=== PATIENT | male | born 1960 | race African-American/Black ===

== ENCOUNTER 2020-07-18 17:20 | Inpatient (IN) | payer BC ==
[~2020-07-18] VITALS: Ht 167.6 cm; Wt 81.6 kg
[2020-07-18 17:20] VITALS: BP 141/73
[~2020-07-18 17:20] MED LIST: IBUPROFEN 800800 MG PO; NORCO 5-325 TA1 EACH PO
--- NOTE | 2020-07-18 19:25 | H ---
[facility] [place] [address] HISTORY AND PHYSICAL Name: MELLISSA DIAZ Room #: 160-6 ADM IN M.R.#: [id number] Admission: 07/18/20 Attend Phys: Arturo Garcia MD, Discharge: Date of : 62 Report #: [id number] THIS REPORT FOR: cc: GURINDER - Pari family physician/PCP GURINDER - Pari family physician/PCP Arturo Garcia MD [facility] ~ CC: [facility] physician/PCP Arturo Pino DO DATE OF SERVICE: 07/18/2020 HISTORY OF PRESENT ILLNESS: The patient is a 59-year-old male, who is generally followed by Dr. Pino. He has little medical history, but he presents to the Emergency Room. His drove him to the Emergency Room after he had drove from [place]. 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 He was driving back from his route to [place], in the last 3 hours having substernal chest discomfort with some mild diaphoresis and shortness of breath. Subsequently, brought to the ER by his , approximately 3 hours into the event, with ST elevation in the inferolateral leads, still having a moderate amount of chest discomfort. Relatively hemodynamically stable. No prior cardiac history. He takes no medications. He denies any prior surgeries. He was given aspirin, heparin, and Lipitor 80 mg in the Emergency Room and then will be brought emergently to the catheterization lab, still having some discomfort. PAST MEDICAL HISTORY: Essentially negative. No blood pressure, not aware that he has elevated cholesterol. No prior surgeries. 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 No alcohol or tobacco. FAMILY HISTORY: Brother at around his age 60-61 had a bypass and a pacemaker. REVIEW OF SYSTEMS: Essentially negative except for some occasional nocturia and as stated above. Some decrease in exercise tolerance. PHYSICAL EXAMINATION: VITAL SIGNS: Pulse is 60-70s, blood pressure 118/64. HEENT: Eyes reveal xanthelasmas. Pharynx is clear. NECK: Shows preserved upstrokes without JVD or bruits. LUNGS: Clear. CARDIOVASCULAR: Regular rate and rhythm, S1, S2. ABDOMEN: Soft. No HSM or abdominal bruit. EXTREMITIES: Reveal no edema. His pulses were intact. NEUROLOGIC: Nonfocal. [facility] [address] [place] [address] HISTORY AND PHYSICAL Name: MELLISSA DIAZ Room #: 160-6 ADM IN M.R.#: [id number] Admission: 07/18/20 Attend Phys: Arturo Garcia MD, Discharge: Date of : 62 Report #: [id number] SKIN: Warm and dry without xanthoma or ulcer. MUSCULOSKELETAL: No gross joint deformity. ASSESSMENT: 1. Inferolateral ST-elevation myocardial infarction. 2. Strong family history of premature coronary disease. RECOMMENDATIONS AND PLAN: Heparin, aspirin, and statin has been initiated. We will move emergently to the catheterization lab for intervention. Risks, benefits, alternatives were discussed with the patient, he will elect to proceed. <ELECTRONICALLY SIGNED> By: Arturo Garcia MD, FACC 07/18/201924 00 17 Arturo Garcia MD, FACC /nt
[2020-07-18 19:38] LABS: HEMATOCRIT 39.9 % (42.0-52.0); HEMOGLOBIN 13.2 gm/dL (14.0-18.0); MCH 27.3 pg (26.0-34.0); MCHC 33.1 g/dL (28.0-37.0); MCV 82.6 fL (80.0-100.0); RBC 4.83 mil/uL (4.50-6.00); WBC 8.4 thou/uL (4.0-11.0)
[2020-07-18 19:49] LABS: ANION GAP 11 mmol/L (7-16); BUN 8 mg/dL (7-18); CALCIUM 9.2 mg/dL (8.5-10.1); CHLORIDE 104 mmol/L (98-107); CO2 24 mmol/L (21-32); GLUCOSE 133 mg/dL (74-106); POTASSIUM 3.7 mmol/L (3.5-5.1); SODIUM 139 mmol/L (136-145)
[2020-07-18 20:04] LABS: HEMATOCRIT 36.3 % (42.0-52.0); HEMOGLOBIN 12.3 gm/dL (14.0-18.0); MCH 27.4 pg (26.0-34.0); MCHC 33.8 g/dL (28.0-37.0); MCV 80.9 fL (80.0-100.0); RBC 4.48 mil/uL (4.50-6.00); RDW 14.2 % (10.5-14.5); WBC 6.8 thou/uL (4.0-11.0)
[2020-07-18 20:20] LABS: ANION GAP 9 mmol/L (7-16); BUN 6 mg/dL (7-18); CALCIUM 8.6 mg/dL (8.5-10.1); CHLORIDE 106 mmol/L (98-107); CO2 23 mmol/L (21-32); CREATININE 0.8 mg/dL (0.7-1.3); GLUCOSE 115 mg/dL (74-106); POTASSIUM 3.6 mmol/L (3.5-5.1); SODIUM 138 mmol/L (136-145)
[2020-07-18 20:22] LABS: TROPONIN-I 148.22 ng/mL (<0.06)
[2020-07-18 21:00] VITALS: BP 142/76
[2020-07-19] VITALS (7 sets, daily range): BP systolic 103–131; BP diastolic 54–69
[2020-07-19 00:10] LABS: CHOLESTEROL 163 mg/dL (<200); HDL CHOLESTEROL 45 mg/dL (>40); LDL CHOLESTEROL 106 mg/dL (<100); TC:HDL 3.6 Ratio (Not establshd); TRIGLYCERIDE 60 mg/dL (<150); VLDL 12 mg/dL (<40)
[2020-07-19 00:16] LABS: CHOLESTEROL 142 mg/dL (<200); HDL CHOLESTEROL 40 mg/dL (>40); LDL CHOLESTEROL 98 mg/dL (<100); TC:HDL 3.6 Ratio (Not establshd); TRIGLYCERIDE 22 mg/dL (<150); VLDL 4 mg/dL (<40)
[2020-07-19 00:30] LABS: SERUM ASSESSMENT Clear
[2020-07-19 00:30] LABS: SERUM ASSESSMENT Clear
--- NOTE | 2020-07-19 05:16 | NUR ---
PT IS ALERT AND ORIENTED X4. LUNGS ARE CLEAR. DENIES CHEST PAIN. DID HAVE A HEADACHE BUT TYLENOL HELPED AND HEADACHE IS GONE. ABDOMEN IS ROUND BOWEL SOUNDS ACTIVE X4. DISCUSSED PLAN OF CARE. DICUSEDD HEALTHY LIFE STYLE OR STRESS CHANGES WITH LIVING. GROIN SITE IS ON THE RIGHT NO EDEMA OR BLEEDING NOTED OR BRUISING. MINIMAL PAIN PT SLEPT DURING THE NIGHT IN BETWEEN NURSING CARE.
[2020-07-19 07:57] LABS: HEMATOCRIT 37.2 % (42.0-52.0); HEMOGLOBIN 12.3 gm/dL (14.0-18.0); MCH 27.2 pg (26.0-34.0); MCHC 33.2 g/dL (28.0-37.0); MCV 82.2 fL (80.0-100.0); RBC 4.53 mil/uL (4.50-6.00); RDW 14.3 % (10.5-14.5)
[2020-07-19 08:03] LABS: CALCIUM 8.7 mg/dL (8.5-10.1); CREATININE 0.8 mg/dL (0.7-1.3); POTASSIUM 3.6 mmol/L (3.5-5.1)
--- NOTE | 2020-07-19 13:43 | 2DMMODE ---
[facility] [address] [place] [address] 2 D/M-MODE ECHOCARDIOGRAM Name: MELLISSA DIAZ Room #: 207-P ADM IN M.R.#: [id number] Admission: 07/18/20 Attend Phys: Arturo Garcia MD, Discharge: Date of : 62 Report #: [id number] THIS REPORT FOR: cc: GURINDER - Pari family physician/PCP FAM - No family physician/PCP Arturo Garcia MD [facility] ~ APPROVED REPORT Study performed: 07/19/2020 09:47:08 EXAM: Comprehensive 2D, Doppler, and color-flow Echocardiogram Patient Location: Bedside Room #: 207 Status: on-call BSA: 1.87 HR: 63 bpm BP: 114/62 mmHg Rhythm: NSR Other Information Study Quality: Good Indications STEMI stats post PCI. 2D Dimensions RVDd: 39.45 mm IVSd: 12.00 (7-11mm) LVOT Diam: 21.00 (18-24mm) LVDd: 43.00 mm PWd: 12.02 (7-11mm) Ascending Ao: 32.00 (22-36mm) LVDs: 32.00 (25-40mm) Aortic Root: 30.86 mm Volumes Left Atrial Volume (Systole) Single Plane 4CH: 45.33 mL Single Plane 2CH: 68.87 mL LA ESV Index: 31.00 mL/m2 Aortic Valve AoV Peak Hamilton.: 1.69 m/s AO Peak Gr.: 11.48 mmHg LVOT Max P.39 mmHg LVOT Max V: 1.26 m/s TUSHAR Vmax: 2.66 cm2 [facility] [address] [address] 2 D/M-MODE ECHOCARDIOGRAM Name: MELLISSA DIAZ Room #: 207-P [facility].#: [id number] Admission: 07/18/20 Attend Phys: Arturo Garcia, Discharge: Date of : 62 Report #: [id number] Mitral Valve E/A Ratio: 1.7 MV Decel. Time: 181.03 ms MV E Max Hamilton.: 0.96 m/s MV A Hamilton.: 0.56 m/s MV PHT: 52.50 ms IVRT: 72.66 ms Pulmonary Valve PV Peak Hamilton.: 1.00 m/s PV Peak Gr.: 4.03 mmHg Pulmonary Vein P Vein S: 0.79 m/s P Vein D: 0.49 m/s P Vein S/D Ratio: 1.61 Tricuspid Valve TR Peak Hamilton.: 2.82 m/s RAP Estimate: 5.00 mmHg TR Peak Gr.: 32.00 mmHg PA Pressure: 37.00 mmHg Left Ventricle The left ventricle is normal size. Mild inf lateral hypokinesis Mild concentric left ventricular hypertrophy. Left ventricular systolic function is borderline. LVEF is 45-50%. Right Ventricle The right ventricle is normal size. The right ventricular systolic function is normal. Atria The left atrium size is normal. The right atrium size is normal. Aortic Valve The aortic valve is normal in structure. No aortic regurgitation is present. There is no aortic valvular stenosis. Mitral Valve The mitral valve is normal in structure. Trace to mild mitral regurgitation. No evidence of mitral valve stenosis. Tricuspid Valve The tricuspid valve is normal in structure. Trace tricuspid regurgitation. Estimated PAP is 35-40mmHg. [facility] [address] [address] 2 D/M-MODE ECHOCARDIOGRAM Name: MELLISSA DIAZ Room #: 207-P ADM IN M.R.#: [id number] Admission: 07/18/20 Attend Phys: Arturo Garcia, Discharge: Date of : 62 Report #: [id number] Pulmonic Valve The pulmonary valve is normal in structure. Trace pulmonic regurgitation. Great Vessels The aortic root is normal in size. The ascending aorta is normal in size. IVC is normal in size and collapses >50% with inspiration. Pericardium There is no pericardial effusion. <Conclusion> The left ventricle is normal size. Mild inf lateral hypokinesis LVEF is 45-50%. The right ventricle is normal size. The left atrium size is normal. The aortic valve is normal in structure. Trace to mild mitral regurgitation. Trace tricuspid regurgitation. Estimated PAP is 35-40mmHg. The aortic root is normal in size. There is no pericardial effusion. <ELECTRONICALLY SIGNED> By: Arturo Garcia MD, FACC 07/19/20 1343 134 42 Arturo Garcia MD, FACC /INF
--- NOTE | 2020-07-19 14:04 | CATHLAB ---
[facility] [place] [place] [address] INVASIVE PROCEDURE REPORT Name: MELLISSA DIAZ Room #: 207-P ADM IN M.R.#: [id number] Admission: 07/18/20 Attend Phys: Arturo Garcia MD, Discharge: Date of : 62 Report #: [id number] THIS REPORT FOR: cc: FAM - No family physician/PCP FAM - No family physician/PCP Arturo Garcia MD [facility] ~ APPROVED REPORT Study performed: 07/18/2020 18:00:24 Patient Details Patient Status: In-Patient Room #: The patient is a 59 year-old male Event Personnel Arturo Garcia Telecommunication Operator, Tati Gibson RN RN, Yvonne Alex, Gricel Adamson Scrlinda Procedures Performed Art Access - R femoral artery* 22446 Initial Mod Sed Same Phys/QHP Gr5y 973767 19954 Mod Sed Same Phys/QHP Ea 420616 Left Heart Cath w/or w/o Coronaries [id number] [facility] Aortogram Abdominal Peripheral Angio 627623 Hemostasis w/ Mynx CHARI Revasc AMI Total/Sub Single CIRC C9606 AMIREVSING Indication STEMI Procedure Narrative The patient was brought emergently to the Cardiac Catheterization Laboratory and was prepped and draped in a sterile manner. The Right Groin^ was infiltrated with 1% Lidocaine subcutaneous anesthesia. A PINNACLE 6FR Sheath #[id number] sheath was inserted into the RFA^. Coronary angiography was performed using coronary diagnostic catheters. The right coronary system was accessed and visualized with a JR 4 catheter. The left coronary system was accessed and visualized with a JL 4 catheter. The left ventricle was accessed and visualized with a Pigtail catheter. Left ventriculogram was performed in VELASCO projection. An aortogram of the abdominal aorta was performed. Closure device was deployed with a 6 Fr Mynx. The patient tolerated the procedure well and there were no complications associated with the procedure. There was no hematoma. Intraoperative Conscious Sedation [facility] [address] [place] [address] INVASIVE PROCEDURE REPORT Name: MELLISSA DIAZ Room #: 207-P [facility] IN M.R.#: [id number] Admission: 07/18/20 Attend Phys: Arturo Garcia, Discharge: Date of : 62 Report #: [id number] Sedation start time: 17:17 Case end Time: 19:20 Fentanyl 100 mcg Versed 2 mg Fluoro Time: 7.12 minutes Dose: DAP 7450.00 cGycm2 953 mGy Contrast Type and Amount: Visipaque 207 ml Hemodynamics The aortic pressure is 139/77 mmHg with a mean of 102 mmHg. PCI Technique Lesion Percutaneous coronary intervention was performed on the first obtuse marginal branch segment. A LAUNCHER 6FR EBU 3.5 #[id number] Guide Catheter was used to engage the ostium. A Luge Wire .014 x 182CM #[id number] Interventional Guidewire was used to cross the lesion. BALLOON DILATION A Balloon catheter Sprinter OTW 2.5 x 12 #[id number] was inserted and inflated up to 8.00atm for 16seconds. Additional Inflation: 8.00atm for 13seconds. Additional Inflation: 8.00atm for 10seconds. STENT DEPLOYMENT A drug-eluting stent RESOLUTE KAY OTW 2.5 X 12 #[id number] was inserted and inflated up to 12.00atm for 22seconds. Additional Inflation: 14.00atm for 15seconds. Conclusion #1. Successful PTCA stent of an acute infarct vessel first OM and a dominant circumflex system 100% to 0% with REMA grade III flow placement of a 2.5 x 12 resolute Saxon postdilated 2.7 mm bifurcation distal to the stent being third OM has an eccentric ostial lesion of 50% #2 the proximal circumflex mildly diseased circumflex in the AV groove is mildly diseased. This is the dominant vessel. #3 left main large mildly disease giving rise to LAD and circumflex #4 LAD with 30 to 40% proximal proximal mid 50% long lesion diffuse distal disease wraps around the apex. #5 small nondominant right coronary with mild disease #6 normal left jugular size with inferior lateral hypokinesis EF 45 to 50% range (suspect stunning) #7 abdominal aortogram widely patent normal caliber no aneurysm. Single bilateral renal arteries widely patent [facility] [address] [place] [address] INVASIVE PROCEDURE REPORT Name: MELLISSA DIAZ Room #: 207-P [facility] IN M.R.#: [id number] Admission: 07/18/20 Attend Phys: Arturo Garcia, Discharge: Date of : 62 Report #: [id number] Recommendations and plan: Continue aggressive risk factor modification. Dual antiplatelet therapy initiated Integrilin drip initiated to CCU follow post coronary stent protocol. <ELECTRONICALLY SIGNED> By: Arturo Garcia MD, FACC 07/19/20 1404 1404 1404 Arturo Garcia MD, FACC /INF
--- NOTE | 2020-07-19 18:01 | NUR ---
ASSESSMENT CHARTED. PT ALERT AND ORIENTED. VSS. RECEIVED PRN PAIN MED FOR JANSEN WITH PARTIAL RELEIF. SR/SB. NO CARDIAC DISTRESS NOTED. AMBULATED X1 THIS SHIFT. PROGRESSING WELL TOWARDS DISCHARGE GOAL.
--- NOTE | 2020-07-19 23:28 | NUR ---
VITALS STABLE. LUNGS ARE CLEAR HE IS ON ROOM AIR. UP TO BATHROOM AND UP AD CICI DENIES ANY CHEST PAIN. SINUS RHYTHM, ON THE MONITOR. PLEASANT. ABDOMEN IS FLAT BOWEL SOUNDS ACTIVE X4. NO EDEMA NOTED. WILL CONTINUE TO ASSESS AND MONITOR PER NURSING. NO ISSUES OR CONERNS NOTED AT THIS TIME.
[2020-07-20 04:21] VITALS: BP 104/55
[2020-07-20 04:29] LABS: CALCIUM 8.4 mg/dL (8.5-10.1); POTASSIUM 3.6 mmol/L (3.5-5.1)
--- NOTE | 2020-07-20 04:31 | NUR ---
PT IS ALERT AND ORIENTED X4. LUNGS ARE CLEAR. DENIES ANY PAIN . RESTING AND SLEEPING. 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 COMPLAINS OF SLIGHT HEADACHE TYLNEOL GIVNE AN PT SLEEPING NOW. VITALS STABLE. NO EDEMA NOTED. WILL CONTINUE TO ASSESS AND MONITOR , POSSIBLE DISCHARGE TODAY.
[2020-07-20 07:37] VITALS: BP 108/60
[2020-07-20] MEDS ORDERED: TOPROL XL25 MG PO (07:45)
[2020-07-20] MEDS ORDERED: ASPIRIN325 PO (07:45)
[2020-07-20] MEDS ORDERED: LIPITOR40 MG PO (07:45)
[2020-07-20] MEDS ORDERED: EFFIENT10 MG PO (07:45)
[2020-07-20] MEDS ORDERED: COZAAR 25 MG TA25 M1 PO (07:45)
[2020-07-20 09:25] VITALS: BP 108/60
--- NOTE | 2020-07-20 09:54 | NUR ---
ASSESSMENT CHARTED. PT ALERT AND ORIENTED. VSS. DEIED HAVING PAIN OR DISCOMFORT. SR ON TELE. SEEN BY DR. LOPEZ. ORDERS GIVEN TO DISCHARGE PT TO HOME. DISCHARGE INSTRUCTIONS GIVEN TO PT. PT VERBERLISED UNDERSTANDING.
--- NOTE | 2020-07-20 16:32 | EKG ---
[facility] [place] [address] ELECTROCARDIOGRAM REPORT Name: MELLISSA DIAZ Room #: 207- DIS IN M.R.#: [id number] Admission: 07/18/20 Attend Phys: Arturo Garcia MD, Discharge: 07/20/20 Date of : 62 Report #: [id number] THIS REPORT FOR: cc: GURINEDR - Pari family physician/PCP FAM - No family physician/PCP Seven Solomon MD [facility] ~ THIS REPORT FOR: //name// [facility] ED Test Date: 2020-07-18 Test Time: 17:18:51 Pat Name: MELLISSA DIAZ Department: Room: 207 Gender: M Pan Helper: JSELINA : 1960 Requested By: Mario Vallecillo Order Number: [id number] MD: Seven Solomon Measurements Intervals [place] Rate: 57 P: 48 MD: 158 QRS: 23 QRSD: 97 T: -50 QT: 440 QTc: 429 Interpretive Statements Sinus rhythm Probable inferior infarct, possibly acute Abnormal lateral Q waves No previous ECG available for comparison Electronically Signed On 07-20-2020 16:32:45 CDT by Seven Solomon [email or web address] <ELECTRONICALLY SIGNED> By: Seven Solomon MD, [facility] 07/20/20 1632 1718 1718 Seven Solomon MD, [facility] /EPI
--- NOTE | 2020-07-20 16:40 | EKG ---
[facility] [place] [address] ELECTROCARDIOGRAM REPORT Name: MELLISSA DIAZ Room #: 207-P DIS IN M.R.#: [id number] Admission: 07/18/20 Attend Phys: Arturo Garcia MD, Discharge: 07/20/20 Date of : 62 Report #: [id number] THIS REPORT FOR: cc: GURINDER - Pari family physician/PCP GURINDER - No family physician/PCP Seven Solomon MD [facility] ~ THIS REPORT FOR: //name// [facility] Test Date: 2020-07-19 Test Time: 07:26:15 Pat Name: MELLISSA DIAZ Department: Room: 207 Gender: M Is Manager: UNK : 1960 Requested By: Arturo Garcia Order Number: [id number] MD: Seven Solomon Measurements Intervals [place] Rate: 60 P: 27 RI: 152 QRS: -22 QRSD: 98 T: -89 QT: 460 QTc: 460 Interpretive Statements Sinus rhythm Inferior infarct, recent T wave abnormality, consider lateral ischemia Compared to ECG 07/18/2020 17:18:[address] segment elevation is less prominent Electronically Signed On 07-20-2020 16:39:56 CDT by Seven Solomon [email or web address] <ELECTRONICALLY SIGNED> By: Seven Solomon MD, [facility] 07/20/20 1639 5 5 Seven Solomon MD, FAC /EPI
== END 2020-07-20 10:41 | disposition home or self-care (01) | DRG 247 ==
LOC: ER 17:20 → TBACV 19:13 → 2N 20:27
PROVIDERS: ADMIT Internal Medicine Cardiovascular Disease; ATTEND Internal Medicine Cardiovascular Disease
DX: I21.19 ST elevation (STEMI) myocardial infarction involving other coronary artery of inferior wall (principal); M19.90 Unspecified osteoarthritis, unspecified site; E78.5 Hyperlipidemia, unspecified; I25.5 Ischemic cardiomyopathy; Z82.49 Family history of ischemic heart disease and other diseases of the circulatory system; Z79.899 Other long term (current) drug therapy
CPT/HCPCS: 10081

== ENCOUNTER 2020-08-07 08:22 | Emergency (ER) | payer BC ==
[~2020-08-07] VITALS: Ht 170.2 cm; Wt 78.0 kg
[~2020-08-07 08:22] MED LIST changes: +ASPIRIN325 PO; +COZAAR 25 MG TA25 M1 PO; +EFFIENT10 MG PO; +LIPITOR40 MG PO; +TOPROL XL25 MG PO
[2020-08-07 09:24] LABS: ABSOLUTE NEUTROPHILS 3.5 thou/uL (1.4-8.2); BASOPHILS 0.6 % (0.0-2.0); EOSINOPHILS 11.6 % (0.0-3.0); HEMATOCRIT 36.2 % (42.0-52.0); LYMPHOCYTES 12.7 % (24.0-44.0); MCH 27.1 pg (26.0-34.0); MCHC 33.2 g/dL (28.0-37.0); MCV 81.6 fL (80.0-100.0); MONOCYTES 11.3 % (1.0-8.0); PLATELET COUNT 209 thou/uL (150-400); POLYS 63.8 % (36.0-66.0); RBC 4.43 mil/uL (4.50-6.00); RDW 13.8 % (10.5-14.5); WBC 5.5 thou/uL (4.0-11.0)
[2020-08-07 09:34] LABS: CALCIUM 9.3 mg/dL (8.5-10.1); CREATININE 1.3 mg/dL (0.7-1.3); POTASSIUM 3.5 mmol/L (3.5-5.1)
[2020-08-07 09:44] LABS: ALBUMIN 3.5 g/dL (3.4-5.0); TOTAL BILIRUBIN 3.7 mg/dL (0.2-1.0); TOTAL PROTEIN 8.3 g/dL (6.4-8.2); TROPONIN-I 0.47 ng/mL (<0.06)
--- NOTE | 2020-08-07 10:05 | EKG ---
[facility] [place] [address] ELECTROCARDIOGRAM REPORT Name: MELLISSA DIAZ Room #: PRE M.R.#: [id number] Admission: Attend Phys: Discharge: Date of : 62 Report #: [id number] THIS REPORT FOR: cc: GURINDER - Pari family physician/PCP GURINDER - Pari family physician/PCP Sourav Ribeiro MD [facility] ~ THIS REPORT FOR: //name// [facility] ED Test Date: 2020-08-07 Test Time: 09:32:15 Pat Name: MELLISSA DIAZ Department: Room: Gender: M Nuclear Supervising Operator: kf : 1960 Requested By: Mario Vallecillo Order Number: [id number] MD: Sourav Ribeiro Measurements Intervals [place] Rate: 61 P: 33 MS: 163 QRS: -17 QRSD: 108 T: 268 QT: 488 QTc: 492 Interpretive Statements Sinus rhythm Probable left atrial enlargement Inferoposterior infarct, age indeterminate, possibly recent Abnrm T, probable ischemia, anterolateral lds Compared to ECG 07/19/2020 07:26:15 T-wave abnormality no longer present Myocardial infarct finding still present Possible ischemia still present Electronically Signed On 08-07-2020 10:05:09 CDT by Sourav Ribeiro [email or web address] <ELECTRONICALLY SIGNED> By: Sourav Ribeiro MD, FACC 08/07/20 1005 1 1 Sourav Ribeiro MD, FAC /EPI
[2020-08-07 12:53] LABS: URINE BILIRUBIN 2+ (Negative); URINE BLOOD NEGATIVE (Negative); URINE CLARITY CLEAR; URINE COLOR YELLOW; URINE GLUCOSE-RANDOM* NEGATIVE (Negative); URINE KETONES 1+ (Negative); URINE LEUKOCYTES-REFLEX TRACE (Negative); URINE NITRITE-REFLEX NEGATIVE (Negative); URINE PROTEIN (DIPSTICK) NEGATIVE (Negative); URINE SPECIFIC GRAVITY 1.015 (1.005-1.035)
[2020-08-07 12:56] LABS: ICTOTEST (BILI CONFIRMATORY) Positive (Negative)
[2020-08-07 14:12] LABS: INR 1.2; PROTIME 12.1 Seconds (9.3-11.4)
[2020-08-07] MEDS ORDERED: PROTONIX40 MG PO (14:18)
[2020-08-07] MEDS ORDERED: APAP W/CODEINE1 TA2 PO (14:21)
[2020-08-07 14:50] VITALS: BP 124/72
[2020-08-07 15:37] LABS: % SATURATION 22 % (20-39); IRON 51 ug/dL (65-175); TIBC 229 ug/dL (250-450); TOTAL BILIRUBIN 4.2 mg/dL (0.2-1.0)
[2020-08-08 05:07] LABS: HAV IgM AB (ANTI-HAV IgM) Negative (Negative); HEPATITIS B SURFACE AG Negative (Negative); HEPATITIS C VIRUS AB <0.1 (0.0-0.9)
[2020-08-08 14:07] LABS: ANTI-DNA SCREEN 8 IU/mL (0-9); ANTI-RNP <0.2 AI (0.0-0.9)
[2020-08-09 15:07] LABS: CERULOPLASMIN 38.8 mg/dL (16.0-31.0)
== END 2020-08-07 15:06 | disposition home or self-care (01) ==
LOC: ER 08:22
PROVIDERS: Emergency Medicine; Nurse Practitioner
DX: R10.13 Epigastric pain (principal); R19.7 Diarrhea, unspecified; R61 Generalized hyperhidrosis; R94.5 Abnormal results of liver function studies; Z20.828 Contact with and (suspected) exposure to other viral communicable diseases; I25.2 Old myocardial infarction; I25.10 Atherosclerotic heart disease of native coronary artery without angina pectoris; E78.5 Hyperlipidemia, unspecified; M19.90 Unspecified osteoarthritis, unspecified site; I10 Essential (primary) hypertension; Z79.899 Other long term (current) drug therapy; Z79.82 Long term (current) use of aspirin; Z95.5 Presence of coronary angioplasty implant and graft

== ENCOUNTER → 2020-09-11 | Outpatient (CLI) | payer BC ==
[~2020-09-11] MED LIST changes: +APAP W/CODEINE1 TA2 PO; +PROTONIX40 MG PO
== END ==
LOC: SJCVCIMAG 13:29
PROVIDERS: ATTEND Internal Medicine Cardiovascular Disease
DX: I08.1 Rheumatic disorders of both mitral and tricuspid valves (principal); I25.10 Atherosclerotic heart disease of native coronary artery without angina pectoris; E78.5 Hyperlipidemia, unspecified; I25.2 Old myocardial infarction